=== PATIENT | female | born 1960 | race Caucasian/White ===

== ENCOUNTER → 2023-08-01 | Emergency (ER) | payer SELFPAY ==
[~2023-08-01] MED LIST: KETOROLAC 30 MG/ML INJ ONE; NA CHLORIDE 0.9% 1,000 ML ONE; ONDANSETRON 4 MG/2 ML VIAL ONE
[2023-08-01 12:55] LABS: Absolute Lymphocytes (CBC) 2.9 K/uL (0.7-4.9); Hematocrit 43.1 % (36.0-45.0); MCV 84.4 fL (80-100); MPV 6.9 fL (7.6-11.3); Platelets 346 thou/uL (152-406); RBC Red Blood Cell Count 5.11 M/uL (3.86-4.86)
[2023-08-01 13:35] LABS: Albumin 3.2 g/dL (3.4-5.0); Bilirubin Total 0.2 mg/dL (0.2-1.0); Protein, Total 7.1 g/dL (6.4-8.2)
[2023-08-01 13:36] LABS: Potassium 4.2 mEq/L (3.5-5.1)
--- NOTE | 2023-08-01 13:48 | RAD REPORT ---
EXAM DESCRIPTION: US - Abdomen Exam Limited - 08/01/2023 1:09 pm CLINICAL HISTORY: ABD PAIN COMPARISON: No comparisons FINDINGS: The gallbladder demonstrates shadowing gallstones. No pericholecystic fluid or gallbladder wall thickening. The common bile duct is normal measuring 4 mm. There are mobile stones in the regio n of the gallbladder neck and fundus. The liver demonstrates no findings of intrahepatic biliary dilatation. Hepatic steatosis . IMPRESSION: Cholelithiasis without sonographic evidence of acute cholecystitis. Hepatic steatosis. No biliary duct dilatation.
[2023-08-01 14:54] LABS: Specific Gravity 1.016 (1.005-1.030); Urine Bacteria <20 /HPF (<20); Urine Bilirubin NEGATIVE (Negative); Urine Blood Trace (Negative); Urine Clarity Extremely Turbid (Clear); Urine Color Light-Yellow (Yellow); Urine Glucose NEGATIVE (Negative); Urine Mucus Slight /HPF (None Seen); Urine Protein NEGATIVE (Negative); Urine RBC <5 /HPF (None Seen); Urine Urobilinogen Normal (Normal)
--- NOTE | 2023-08-01 14:57 | EDPHYS ---
Physician Documentation [facility] Name: Mohini Denton Age: 62 yrs Sex: Female : 1960 Arrival Date: 08/01/2023 Time: 12:16 Bed 17 Private MD: ED Physician Wilmer Goldsmith HPI: 08/01 14:11 This 62 yrs old Female presents to ER via Ambulatory with complaints of Back Pain, kb Abdominal Pain, Nausea, Flank Pain. 14:11 Patient is a 62-year-old female who presents for right mid back pain that radiates kb around to right abdomen started 6 days ago. Reports nausea, denies vomiting, diarrhea, urinary symptoms, fever.. Historical: - Allergies: 12:29 Keflex; rv 12:29 Macrobid; rv - PMHx: 12:29 Insomnia; rv - PSHx: 12:29 Lap band; section; section; section; rv - Immunization history:: Client reports having NOT received the Covid vaccine. - Social history:: Smoking status: Patient reports the use of cigarette tobacco products, smokes one pack cigarettes per day. ROS: 14:11 Constitutional: Negative for fever, chills, and weight loss, kb 14:11 Abdomen/GI: Positive for abdominal pain, nausea, of the right upper quadrant, Negative for vomiting, diarrhea, 14:11 Back: Positive for pain at rest, pain with movement, of the right mid back, 14:11 All other systems are negative, Exam: 14:11 Constitutional: This is a well developed, well nourished patient who is awake, alert, kb and in no acute distress. Head/Face: Normocephalic, atraumatic. ENT: Moist Mucous membranes Cardiovascular: Regular rate Respiratory: Respirations even and unlabored. No increased work of breathing. Talking in full sentences Abdomen/GI: Soft, non-tender. No distention Skin: Warm, dry with normal turgor. Normal color. MS/ Extremity: Pulses equal, no cyanosis. Neurovascular intact. Full, normal range of motion. Neuro: Awake and alert, GCS 15, oriented to person, place, time, and situation. Moves all extremities. Normal gait. 14:11 Back: pain, that is moderate, of the right mid back, ROM is painful, normal spinal alignment noted, Vital Signs: 12:25 BP 157 / 97; Pulse 78; Resp 17; Temp 98.6(O); Pulse Ox 99% ; Weight 88.9 kg; Height 5 rv ft. 4 in. ; Pain 8/10; 12:25 Body Mass Index 33.64 (88.90 kg, 162.56 cm) rv 12:25 Pain Scale: Adult rv MDM: 12:23 Patient medically screened. kb 14:12 Differential diagnosis: Cholelithiasis Ureterolithiasis uti, strain. Data reviewed: kb vital signs, nurses notes. 14:56 Counseling: I had a detailed discussion with the patient and/or guardian regarding the kb historical points, exam findings, and any diagnostic results supporting the discharge/admit diagnosis, lab results, radiology results, the need for outpatient follow up, a family practitioner, a general surgeon, a customer records division supervisor, to return to the emergency department if symptoms worsen or persist or if there are any questions or concerns that arise at home. Response to treatment: the patient's symptoms have markedly improved after treatment. 08/01 12:26 Order name: CBC with Diff; Complete Time: 12:59 kb 08/01 12:26 Order name: CMP; Complete Time: 13:37 kb 08/01 12:26 Order name: Lipase; Complete Time: 13:37 kb 08/01 12:26 Order name: Urinalysis w/ reflexes; Complete Time: 14:56 kb 08/01 14:58 Order name: Urine Culture EDMS 08/01 12:26 Order name: Abdomen Limited US; Complete Time: 13:58 kb 08/01 12:26 Order name: IV Saline Lock; Complete Time: 12:50 kb 08/01 12:26 Order name: Labs collected and sent; Complete Time: 12:50 kb Administered Medications: 13:20 Drug: NS 0.9% IV 1000 ml IV at 1 bolus Per protocol; 1000 mL bolus Route: IV; Rate: 1 bp bolus; Site: right antecubital; 15:04 Follow up: IV Status: Completed infusion; IV Intake: 1000ml bp 13:20 Drug: TORadol - Ketorolac IVP 15 mg IVP once Route: IVP; Site: right antecubital; bp 15:04 Follow up: Response: No adverse reaction bp 13:20 Drug: Ondansetron IVP 4 mg IVP once; over 2 minutes Route: IVP; Site: right antecubital;bp 15:04 Follow up: Response: No adverse reaction bp Disposition Summary: 08/01/23 14:57 Discharge Ordered Notes: Location: Home kb Condition: Stable kb Diagnosis - Other cholelithiasis without obstruction kb Followup: kb - With: Emergency Department - When: As needed - Reason: Worsening of condition Followup: kb - With: Private Physician - When: 2 - 3 days - Reason: Recheck today's complaints, Continuance of care, Re-evaluation by your physician Discharge Instructions: - Discharge Summary Sheet kb - Cholelithiasis, [id number] kb Forms: - Medication Reconciliation Form kb - Thank You Letter kb - Antibiotic Education kb - Prescription Opioid Use kb - Patient Portal Instructions kb - Leadership Thank You Letter kb Prescriptions: - Zofran 4 mg Oral tablet - take 1 tablet ORAL route every 6 hours As needed; 12 tablet; Refills: 0, kb Product Selection Permitted - dicyclomine 20 mg Oral tablet - take 1 tablet ORAL route 4 times per day As needed; 20 tablet; Refills: 0, kb Product Selection Permitted Signatures: Dispatcher [employer] EDLianet Acosta, TRACTOR MECHANIC APPRENTICE-C TRACTOR MECHANIC APPRENTICE-Hemal Carrillo, RN RN bp Harpal Sandoval, RN RN rv Corrections: (The following items were deleted from the chart) 14:12 14:11 Abdomen/GI: Positive for abdominal pain, of the right upper quadrant, kb kb
--- NOTE | 2023-08-01 14:57 | ER ---
Nurse's Notes [facility] Name: Mohini Denton Age: 62 yrs Sex: Female : 1960 Arrival Date: 08/01/2023 Time: 12:16 Bed 17 Private MD: Diagnosis: Other cholelithiasis without obstruction Presentation: 08/01 12:25 Chief complaint: Patient states: Back pain along with right upper abdominal pain for a rv week. Seen at urgent care. Not better. Nausea, denies vomiting/fever. Coronavirus screen: Vaccine status: Patient reports being unvaccinated. Ebola Screen: Patient denies travel to an Ebola-affected area in the 21 days before illness onset. Initial Sepsis Screen: Does the patient meet any 2 criteria? No. Patient's initial sepsis screen is negative. Does the patient have a suspected source of infection? No. Patient's initial sepsis screen is negative. Risk Assessment: Do you want to hurt yourself or someone else? Patient reports no desire to harm self or others. Onset of symptoms was July 27, 2023. 12:25 Method Of Arrival: Ambulatory rv 12:25 Acuity: SALEEM 3 rv Triage Assessment: 12:30 General: Appears in no apparent distress. uncomfortable, Behavior is calm, cooperative, bp appropriate for age. Pain: Complains of pain in right upper quadrant. Historical: - Allergies: 12:29 Keflex; rv 12:29 Macrobid; rv - PMHx: 12:29 Insomnia; rv - PSHx: 12:29 Lap band; section; section; section; rv - Immunization history:: Client reports having NOT received the Covid vaccine. - Social history:: Smoking status: Patient reports the use of cigarette tobacco products, smokes one pack cigarettes per day. Screenin:05 [facility] ED Fall Risk Assessment (Adult) History of falling in the last 3 months, bp including since admission No falls in past 3 months (0 pts). Abuse screen: Denies threats or abuse. Denies injuries from another. Nutritional screening: No deficits noted. Tuberculosis screening: No symptoms or risk factors identified. Assessment: 12:30 General: SEE TRIAGE NOTE. bp 15:05 Reassessment: DC HOME AMBULATORY. Neuro: Level of Consciousness is awake, alert, obeys bp commands, Oriented to Appropriate for age Gait is steady. Vital Signs: 12:25 BP 157 / 97; Pulse 78; Resp 17; Temp 98.6(O); Pulse Ox 99% ; Weight 88.9 kg; Height 5 rv ft. 4 in. ; Pain 8/10; 12:25 Body Mass Index 33.64 (88.90 kg, 162.56 cm) rv 12:25 Pain Scale: Adult rv ED Course: 12:21 Patient arrived in ED. im 12:23 Lianet Zamudio FNP-C [facility] kb 12:23 Wilmer Goldsmith MD is Attending Physician. kb 12:29 Triage completed. rv 12:30 Arm band placed on right wrist. rv 12:52 Inserted saline lock: 20 gauge in right antecubital area, using aseptic technique. [id number] Blood collected. 13:10 Abdomen Limited US In Process Unspecified. EDMS 13:10 Hemal Campbell, RN is Primary Nurse. bp 15:05 Patient has correct armband on for positive identification. bp 15:05 No provider procedures requiring assistance completed. IV discontinued, intact, bp bleeding controlled, No redness/swelling at site. Pressure dressing applied. Administered Medications: 13:20 Drug: NS 0.9% IV 1000 ml IV at 1 bolus Per protocol; 1000 mL bolus Route: IV; Rate: 1 bp bolus; Site: right antecubital; 15:04 Follow up: IV Status: Completed infusion; IV Intake: 1000ml bp 13:20 Drug: TORadol - Ketorolac IVP 15 mg IVP once Route: IVP; Site: right antecubital; bp 15:04 Follow up: Response: No adverse reaction bp 13:20 Drug: Ondansetron IVP 4 mg IVP once; over 2 minutes Route: IVP; Site: right antecubital;bp 15:04 Follow up: Response: No adverse reaction bp Medication: 15:05 VIS not applicable for this client. bp Intake: 15:04 IV: 1000ml; Total: 1000ml. bp Outcome: 14:57 Discharge ordered by . kb 15:05 Discharged to home ambulatory, bp 15:05 Condition: stable 15:05 Discharge instructions given to patient, Instructed on discharge instructions, follow up and referral plans. medication usage, Demonstrated understanding of instructions, follow-up care, medications, Prescriptions given X 2, 15:07 Patient left the ED. bp Signatures: Dispatcher [employer] EDNM Robb, Lianet, SERVER ENGINEER-C SERVER ENGINEER-CkHemal Larios, RN RN bp Harpal Sandoval RN RN Rufina Donohue [facility] [place]
[2023-08-01 15:18] VITALS: BP 157/97; TEMP 98.6; O2SAT 99
== END ==
LOC: ER 12:16
DX: K80.80 Other cholelithiasis without obstruction (principal)
CPT/HCPCS: 36415; 76705; 80053; 81001; 83690; 85025; 87086; 87088; 96361; 96374; 96375; 99284; J2405; J7030

== ENCOUNTER 2024-07-16 11:17 | Emergency (ER) | payer OTHER, SELFPAY ==
--- OUTSIDE RECORDS SUMMARY | 2024-07-16 11:22 | XMS REPORT | Continuity of Care Document ---
Author Name Unknown Address [address] [place] [address] [facility] thconnect Address [address] [place] [address] Care Team Providers Care Liquid Flavor Compounder Name Role Phone None, None Primary Care Physician [phone] Talia Theodore PA-C Attending Clinician [phone] TALIA THEODORE Attending Clinician Unavailable Unknown, Attending Attending Clinician Unavailab YOLANDA Christensen Attending Clinician Unavailable PIA TIMMONS Attending Clinician Unavailable EbPia Albert Attending Clinician Unknown, Attending Attending Clinician Unavailab le Unassigned, [place] Attending Clinician U gracielaable Talia Theodore PA-C Attending Clinician [phone] Lucie Loera Attending Clinician [phone] Attending Clinician Unavailable [address] Admitting Clinician Unavailable Payers Payer Name Policy Type Policy Number Effective Date Expirati on Date Source Problems Condition Name Condition Details Condition Category Status Onset Date Resolution Date Last Treatment Date Treating Clinician Comments Source No known active problems No known active problems Disease [facility] Allergies, Adverse Reactions, Alerts Allergy Name Allergy Type Status Severity Reaction(s) Onset Date Inactive Date Treating Clinician Comments Source HYDROCOD ONE-ACET AMINOPHE N DRUG Active N/V 07-14 00:00: 00 [facility] Hydrocod one-Acet aminophe n Drug Allergy Active Nausea and/or Vomiting 07-14 00:00: 00 [facility] CEPHALEX IN DRUG INGREDI Active Anaphylaxis 02-09 00:00: 00 [facility] NITROFUR ANTOIN MONOHYD/ M-CRYST DRUG Active Anaphylaxis 02-09 00:00: 00 [facility] Cephalex in Propensi ty to adverse reaction s Active Anaphylaxis 02-09 00:00: 00 [facility] Nitrofur antoin Monohyd/ M-Cryst Propensi ty to adverse reaction s Active Anaphylaxis 02-09 00:00: 00 [facility] Cephalex in Monohydr ate DA Active U 07-11 00:00: 00 [facility] cephalex in DA Active U 07-11 00:00: 00 [facility] nitrofur antoin DA Active U 07-11 00:00: 00 [facility] Cephalex in Allergy to substanc e Active Anaphylaxis 07-11 00:00: 00 [facility] ofloxaci n DA Active U 07-11 00:00: 00 [facility] Cephalex in Monohydr ate DA Active U 07-11 00:00: 00 [facility] ofloxaci n DA Active U 07-11 00:00: 00 [facility] Nitrofur antoin Allergy to substanc e Active Anaphylaxis 07-11 00:00: 00 [facility] Ofloxaci n Allergy to substanc e Active 07-11 00:00: 00 [facility] OFLOXACI N DRUG INGREDI Active Unknown-Cmnt 07-11 00:00: 00 [facility] Ofloxaci n Drug Allergy Active Unknown - See comments 07-11 00:00: 00 [facility] NO KNOWN ALLERGIE S Drug Class Active [facility] Social History Social Habit Start Date Stop Date Quantity Comments Source Sexual orientation [facility] History of Social function 2024-07-14 00:00:00 2024-07-14 00:00:00 [facility] Tobacco use and exposure 2023-07-30 00:00:00 2023-07-30 00:00:00 Smokeless tobacco non-user [facility] Exposure to SARS-CoV-2 (event) 2022-01-30 00:00:00 2022-02-09 17:09:00 Not sure [facility] Sex assigned at 1960 00:00:00 1960 00:00:00 [facility] Smoking Status Start Date Stop Date Source Tobacco smoking consumption unknown [facility] Never smoked tobacco [facility] Medications Ordered Medication Name Filled Medication Name Start Date Stop Date Current Medication? Ordering Clinician Indication Dosage Frequency Signature (SIG) Comments Components Source methylPREDN ISolone 4 mg tablets 07-14 00:00: 00 Yes [id number] Take by mouth SEE-INSTRU CTIONS. follow package directions [facility] bromphenira mine-pseudo ephedrine-D M (BROMFED DM) 2-30-10 mg/5 mL syrup 07-14 00:00: 00 Yes [id number] 5mL Take 5 mL by mouth 3 (three) times daily as needed for Cold symptoms or Cough. [facility] azithromyci n 250 mg tablet 07-14 00:00: 00 07-20 05:59 :00 Yes [id number] Take 2 tablets by mouth daily for 1 day, THEN 1 tablet daily for 4 days. [facility] dexamethaso ne (DECADRON) injection 10 mg -15 17:00: 00 07-30 15:58 :00 No [id number] 10mg [facility] ketorolac (TORADOL) injection 30 mg 2-15 16:45: 00 07-30 15:59 :00 No [id number] 30mg [facility] ondansetron (ZOFRAN-ODT ) disintegrat ing tablet 4 mg 07-30 16:45: 00 07-30 15:57 :00 No [id number] 4mg [facility] methocarbam oL (ROBAXIN-75 0) 750 mg tablet 07-30 00:00: 00 08-10 05:59 :00 No [id number] 750mg Take 1 tablet by mouth 4 (four) times daily for 10 days. [facility] ondansetron 4 mg disintegrat ing tablet 07-30 00:00: 00 08-05 05:59 :00 No [id number] 4mg Take 1 tablet by mouth every 8 (eight) hours as needed for Nausea and Vomiting (N/V) for up to 5 days. [facility] temazepam (Restoril) 30 MG capsule 06-23 00:00: 00 Yes TAKE 1 CAPSULE BY MOUTH EVERYDAY AT BEDTIME FOR 30 DAYS [facility] albuterol 90 mcg/actuati on inhaler 02-09 00:00: 00 Yes [id number] 2{puff} Inhale 2 Puffs every 6 (six) hours as needed for Wheezing or Shortness of Breath. [facility] polymyxin B sulf-trimet hoprim 10,000 unit- 1 mg/mL ophthalmic drops 02-09 00:00: 00 Yes [id number] 1[drp] Place 1 Drop in both eyes every 4 (four) hours. [facility] methylPREDN ISolone 4 mg tablets 02-09 00:00: 00 07-14 00:00 :00 No [id number] Take by mouth SEE-INSTRU CTIONS. follow package directions [facility] azithromyci n 250 mg tablet 02-09 00:00: 00 07-30 00:00 :00 No [id number] 250mg Take 1 tablet by mouth in the morning. [facility] Vital Signs Vital Name Observation Time Observation Value Comments S johny Systolic blood pressure 2024-07-14 23:40:00 136 mm[Hg] [facility] Diastolic blood pressure 2024-07-14 23:40:00 85 mm[Hg] [facility] Heart rate 2024-07-14 23:40:00 81 /min [facility] Body temperature 2024-07-14 23:40:00 36.89 Shannan [facility] Respiratory rate 2024-07-14 23:40:00 15 /min [facility] Body height 2024-07-14 23:40:00 162.6 cm [facility] Body weight 2024-07-14 23:40:00 95.89 kg Univ [facility] BMI 2024-07-14 23:40:00 36.29 kg/m2 [facility] Oxygen saturation in Arterial blood by Pulse oximetry 2024-07-14 23:40:00 97 /min [facility] Systolic blood pressure 2023-08-14 18:02:00 130 mm[Hg] [facility] [place] [facility] Diastolic blood pressure 2023-08-14 18:02:00 91 mm[Hg] [facility] [place] [facility] Heart rate 2023-08-14 18:02:00 90 /min [facility] Body height 2023-08-14 18:02:00 [facility]6 [facility] 2023-08-14 18:02:00 89.404 [facility] BMI 2023-08-14 18:02:00 33.83 [facility] saturation in Arterial blood by Pulse oximetry 2023-08-14 18:02:00 97 /min [facility] [place] [facility] Systolic blood pressure 2023-07-30 15:39:00 132 mm[Hg] [facility] Diastolic blood pressure 2023-07-30 15:39:00 74 mm[Hg] [facility] Heart rate 2023-07-30 15:39:00 91 /min Unive [facility] Body temperature 2023-07-30 15:39:00 37.11 Shannan [facility] Respiratory rate 2023-07-30 15:39:00 17 /min [facility] Body weight 2023-07-30 15:39:00 88.905 kg [facility] BMI 2023-07-30 15:39:00 33.64 kg/m2 [facility] Oxygen saturation in Arterial blood by Pulse oximetry 2023-07-30 15:39:00 99 /min [facility] Systolic blood pressure 2022-02-09 22:08:00 133 mm[Hg] [facility] Diastolic blood pressure 2022-02-09 22:08:00 85 mm[Hg] [facility] Heart rate 2022-02-09 22:08:00 86 /min [facility] Body temperature 2022-02-09 22:08:00 37 Shannan [facility] Respiratory rate 2022-02-09 22:08:00 17 /min [facility] Body height 2022-02-09 22:08:00 162.6 cm [facility] Body weight 2022-02-09 22:08:00 87.408 kg [facility] BMI 2022-02-09 22:08:00 33.08 kg/m2 [facility] Oxygen saturation in Arterial blood by Pulse oximetry 2022-02-09 22:08:00 96 /min [facility] Procedures Procedure Date / Time Performed Performing Clinicia n Source XR CHEST 2 VW 2024-07-14 23:53:33 Talia Theodore [facility] PATIENT FINANCIAL POLICY 2023-07-30 15:35:52 Doctor Unassigned, [place] [facility] CONSENT/REFUSAL FOR DIAGNOSIS AND TREATMENT 2022-02-09 21:59:05 Doctor Unassigned, [place] [facility] Encounters Start Date/Time End Date/Time Encounter Type Admission Type Attending Clinicians Care Facility Care Department Encounter ID Source 2024-07-14 17:47:35 2024-07-14 23:59:00 Hospital Encounter Talia Theodore [facility] [id number] [id number] [id number] [id number] [facility] 2024-07-14 17:47:35 2024-07-14 23:59:00 Outpatient R TALIA THEODORE [facility] [id number] [facility] 2024-07-14 17:20:00 2024-07-14 17:57:12 Urgent Care Talia Theodore Unknown, Attending [facility] 1.114 350.1.13.10 4.2.7.2.686 [id number] [facility] 2023-08-24 13:00:00 2023-08-24 13:00:00 Outpatient YOLANDA ACOSTA [facility] [id number] [facility] 2023-08-14 12:45:00 2023-08-14 12:45:00 Office Visit Yolanda Acosta [facility] AND WOM[facility] 1..114 350.1.13.58 [id number] [id number] [facility] [place] [facility] 2023-07-30 09:40:00 2023-07-30 09:58:17 Outpatient R PIA TIMMONS [facility] [id number] [facility] 2023-07-30 09:40:00 2023-07-30 09:58:17 Urgent Care Pia Timmons, Attending [facility] 1.114 350.1.13.10 4.2.7.2.686 [id number] [facility] 2023-07-30 00:00:00 2023-07-30 00:00:00 Orders Only Doctor Unassigned, [place] [facility] 1.114 350.1.13.10 4.2.7.2.686 [id number] [facility] 2022-02-09 17:00:00 2022-02-09 17:20:00 Urgent Care Talia Theodore, [facility] 1.114 350.1.13.10 4.2.7.2.686 [id number] [facility] 2022-02-09 17:00:00 2022-02-09 17:00:00 Outpatient TALIA STEVENSON [facility] [id number] [facility] 2022-02-09 00:00:00 2022-02-09 00:00:00 Orders Only Doctor Unassigned, [place] [facility] [id number] 350.1.13.10 4.2.7.2.686 [id number] [facility] 2021-02-01 10:56:00 2021-02-01 10:56:[address] Jose Angel [facility] [id number] [facility] Results Test Description Test Time Test Comments Results Resul t Comments Source XR Chest 2 vw 2024-06-17 1 00:29:39 XR CHEST 2 VW COMPARISON: No comparison available Ordering provider: TALIA THEODORE CLINICAL INDICATIONS: cough x 3 wks TECHNIQUE: Appropriate radiographic technique and conforming to ALARA FINDINGS: ? The lungs are clear without infiltrate or abnormal opacity. The pleuralspace is unremarkable. The heart and mediastinum are within normal limits.Generalized minimal to moderate degenerative spondylosis in the thoracicspine. [facility] - XR CHEST 2 V 2021-01-14 0 11:28:00 [facility]Name: JOSE MCLAUGHLIN : 1960 Sex: F [place]: [place] St: REG Name: JOSE MCLAUGHLIN LONNY [facility] FSED : 1960 Age/S: 60/F [address] Unit #: [id number] Loc: [facility] [address] Phys: Jose Angel Way MD [place], [place] [address] Acct: [id number] Dis Date: Status: REG CLI PHONE #: Exam Date: 02/01/2021 1103 FAX #: Reason: PNEUMONIA EXAMS: CPT CODE: [id number] XR CHEST 2 V 44944 REASON FOR EXAM: PNEUMONIA Exam Order Date: 02/01/2021 10:59 AM Ordering M.D.: Jose Angel Way MD PROCEDURE: - XR CHEST 2 V COMPARISON: None FINDINGS: The lungs are clear. There is no pleural effusion or pneumothorax. Pulmonary vascularity is within normal limits. Cardiomediastinal silhouette is normal in size for technique. The mediastinal contours are within normal limits. Musculoskeletal structures are within normal limits. Gastric band is present. IMPRESSION: No acute cardiopulmonary process. Location: [facility] at 1128 Reported and signed by: Bud Luevano MD CC: Technologist: Edson Walker Trnscrd Date/Time/By: 02/01/2021 (1128) : By: [email or web address] Orig Print D/T: S: 02/01/2021 (1139) PAGE 1 Signed Report - XR KNEE 3 V RT 2018-09-0 9 14:11:00 FAX: Familia Boston MD [phone] [place]: O St: REG Name: JOSE MCLAUGHLIN [facility] : 1960 Age/S: 58/F [address] Unit #: [id number] [facility] [place] [address] Phys: Familia Ceballos MD Acct: [id number] Dis Date: Status: REG RCR PHONE #: [phone] Exam Date: 09/21/2018 1356 FAX #: [phone] Reason: FX EXAMS: CPT CODE: [id number] XR KNEE 3 [place] RT [address] HISTORY: Fracture follow-up. COMPARISON: None available. 3 views of the right knee: No acute fracture or dislocation. Knee joint is mildly narrowed in all 3 compartments. No osteochondral lesion. Articular surfaces are well marginated. No joint fluid. Bone mineralization and soft tissues are normal. IMPRESSION: No acute fracture or dislocation. Mild tricompartment joint space narrowing. at 1411 Reported and signed by: Heath Rudolph M.D. CC: Familia Ceballos MD Technologist: RT Perla(R) Trnscrd Date/Time/By: 09/21/2018 (1411) : By: [email or web address] Orig Print D/T: S: 09/21/2018 (5124) PAGE 1 Signed Report
[2024-07-16 12:15] LABS: Absolute Basophils 0.1 K/uL (0-0.5); Absolute Lymphocytes (CBC) 1.3 K/uL (0.7-4.9); Absolute Monocytes 0.3 K/uL (0.1-1.3); Basophils % 0.8 % (0-1.3); Hemoglobin 13.4 g/dL (12.0-15.0); MCH 27.4 pg (27.0-35.0); MCHC 34.2 g/dL (32.0-36.0); MPV 6.7 fL (7.6-11.3); Monocytes % 2.6 % (3.3-12.3); Neutrophils % 84.6 % (41.7-73.7); Platelets 441 thou/uL (152-406); RBC Red Blood Cell Count 4.88 M/uL (3.86-4.86); Red Cell Distribution Width 15.2 % (12.1-15.2)
[2024-07-16 12:41] LABS: Anion Gap 8.9 mEq/L (5.0-15.0); Potassium 3.9 mEq/L (3.5-5.1); Thyroid Stimulating Hormone 0.705 uIU/mL (0.358-3.740); Troponin High Sensitivity 3.8 pg/mL (<58.9)
--- NOTE | 2024-07-16 13:16 | ER ---
Nurse's Notes [facility] Name: Mohini Denton Age: 63 yrs Sex: Female : 1960 Arrival Date: 07/16/2024 Time: 11:17 Bed 18 Private MD: Diagnosis: Cough;Other malaise and fatigue Presentation: 07/16 11:36 Chief complaint: Patient states: Has been ill for the last 4 weeks. pt went to urgent cm10 care on and started on Z-Pack and steroids. Pt states that yesterday she felt her heart racing and redness to her face. Pt woke up this morning and had swelling to her eyes. respirations even and unlabored during triage. Coronavirus screen: Client denies travel out of the [place] in the last 14 days. Ebola Screen: Patient denies travel to an Ebola-affected area in the 21 days before illness onset. Onset: The symptoms/episode began/occurred yesterday. Anaphylaxis evaluation, no signs or symptoms of anaphylaxis were noted. Initial Sepsis Screen: Does the patient meet any 2 criteria? No. Patient's initial sepsis screen is negative. Does the patient have a suspected source of infection? No. Patient's initial sepsis screen is negative. Risk Assessment: Do you want to hurt yourself or someone else? Patient reports no desire to harm self or others. Onset of symptoms was July 15, 2024. 11:36 Method Of Arrival: Ambulatory cm10 11:36 Acuity: SALEEM 3 cm10 Triage Assessment: 11:38 General: Appears uncomfortable, Behavior is calm, cooperative. Pain: Complains of pain cm10 in Generalized body aches. Neuro: No deficits noted. Level of Consciousness is awake, alert, obeys commands, Oriented to person, place, time, situation, Appropriate for age. Respiratory: No deficits noted. Airway is patent Respiratory effort is even, unlabored, Respiratory pattern is regular, symmetrical. Historical: - Allergies: 11:36 Keflex; cm10 11:36 Macrobid; cm10 - PMHx: 11:36 insomnia; cm10 - PSHx: 11:36 section; lap band; section; section; cm10 - Immunization history:: Adult Immunizations up to date. - Infectious Disease History:: Denies. - Social history:: Smoking status: Patient reports the use of cigarette tobacco products, smokes one pack cigarettes per day. - Family history:: not pertinent. - Hospitalizations: : No recent hospitalization is reported. Screenin:45 [facility] ED Fall Risk Assessment (Adult) History of falling in the last 3 months, kj2 including since admission No falls in past 3 months (0 pts) Confusion or Disorientation No (0 pts) Intoxicated or Sedated No (0 pts) Impaired Gait No (0 pts) Mobility Assist Device Used No (0 pt) Altered Elimination No (0 pt) Score/Fall Risk Level 0 - 2 = Low Risk Maintained a safe environment, Hourly rounding (assess needs \T\ fall precautionary measures) done. Abuse screen: Denies threats or abuse. Denies injuries from another. Nutritional screening: No deficits noted. Tuberculosis screening: No symptoms or risk factors identified. Assessment: 12:07 General: Appears in no apparent distress. Behavior is calm, cooperative, appropriate ap3 for age. Neuro: Level of Consciousness is awake, alert, obeys commands, Oriented to person, place, time, situation. Cardiovascular: Patient's skin is warm and dry. Respiratory: Airway is patent Respiratory effort is even, unlabored, Respiratory pattern is regular, symmetrical. 13:08 Reassessment: Patient appears in no apparent distress at this time. Patient and/or kj2 family updated on plan of care and expected duration. Pain level reassessed. Patient is alert, oriented x 3, equal unlabored respirations, skin warm/dry/pink. 13:28 Respiratory: Breath sounds are clear. kj2 Vital Signs: 11:36 BP 178 / 90; Pulse 77; Resp 14; Temp 98.5; Pulse Ox 100% ; Weight 92.99 kg; Height 5 cm10 ft. 4 in. ; Pain 6/10; 13:25 BP 154 / 85; Pulse 90; Resp 20; Temp 98; Pulse Ox 100% on R/A; kj2 11:36 Body Mass Index 35.19 (92.99 kg, 162.56 cm) cm10 11:36 Pain Scale: Adult cm10 ED Course: 11:21 Patient arrived in ED. al6 11:29 Syed Manrique MD is Attending Physician. rn 11:36 Arm band placed on right wrist. Patient placed in an exam room, on a stretcher. cm10 11:38 Triage completed. cm10 11:58 Client placed on continuous cardiac and pulse oximetry monitoring. NIBP monitoring ap3 applied. ekg monitor tech on. Pulse ox on. NIBP on. 11:58 EKG done, by ED staff, reviewed by Syed Manrique MD. ap3 12:06 Initial lab(s) drawn, by in, sent to lab. Inserted saline lock: 20 gauge in right ap3 antecubital area, using aseptic technique. Blood collected. Flushed with 10 mL NS. 12:07 CBC with Diff Sent. ap3 12:07 Basic Metabolic Panel Sent. ap3 12:07 TSH Sent. ap3 12:07 T4 Free Sent. ap3 12:07 Troponin High Sensitivity Sent. ap3 12:45 Patient has correct armband on for positive identification. Bed in low position. Call kj2 light in reach. Side rails up X 1. Provided Education on: call light. 13:22 Leidy Phipps, RN is Primary Nurse. kj2 13:28 No provider procedures requiring assistance completed. IV discontinued, intact, kj2 bleeding controlled, No redness/swelling at site. Pressure dressing applied. Administered Medications: No medications were administered Medication: 13:28 VIS not applicable for this client. kj2 Outcome: 13:16 Discharge ordered by . rn 13:28 Discharged to home ambulatory, kj2 13:28 Condition: stable 13:28 Discharge instructions given to patient, Instructed on discharge instructions, follow up and referral plans. Demonstrated understanding of instructions, follow-up care, medications, 13:45 Patient left the ED. kj2 Signatures: Syed Manrique MD MD rn Prokisch, Amanda RN RN ap3 Adelaide Chi RN RN 10 Leidy Phipps RN RN kj2 Jojo Sanders al6
--- NOTE | 2024-07-16 13:16 | EDPHYS ---
Physician Documentation [facility] Name: Mohini Denton Age: 63 yrs Sex: Female : 1960 Arrival Date: 07/16/2024 Time: 11:17 Bed 18 Private MD: ED Physician Syed Manrique HPI: 07/16 13:12 This 63 yrs old Female presents to ER via Ambulatory with complaints of Allergic rn Reaction, maybe from medication. 13:12 Onset: The symptoms/episode began/occurred at an unknown time. Severity of symptoms: At rn their worst the symptoms were mild in the emergency department the symptoms are unchanged. The patient has not experienced similar symptoms in the past. 13:12 Patient reports approximately 1 month of symptoms including cough, malaise, headache rn and fatigue. Patient reports this is currently her second round of antibiotics and taking steroids as well. Yesterday started with periorbital swelling and thought may be allergic reaction so came in for evaluation. Has not had allergic reaction before and has had Zithromax in the past. Has had steroids in the past as well. No new etiology found in discussion with patient. No fever or chills.. Historical: - Allergies: 11:36 Keflex; cm10 11:36 Macrobid; cm10 - PMHx: 11:36 insomnia; cm10 - PSHx: 11:36 section; lap band; section; section; cm10 - Immunization history:: Adult Immunizations up to date. - Infectious Disease History:: Denies. - Social history:: Smoking status: Patient reports the use of cigarette tobacco products, smokes one pack cigarettes per day. - Family history:: not pertinent. - Hospitalizations: : No recent hospitalization is reported. ROS: 13:12 Constitutional: Negative for fever, chills, and weight loss, Neck: Negative for injury, rn pain, and swelling, Cardiovascular: Negative for chest pain, palpitations, and edema, Respiratory: Positive for cough Abdomen/GI: Negative for abdominal pain, nausea, vomiting, diarrhea, and constipation, MS/Extremity: Negative for injury and deformity, Skin: Negative for injury, rash, and discoloration, Neuro: Positive for headache and generalized malaise Exam: 13:12 Constitutional: This is a well developed, well nourished patient who is awake, alert, rn and in no acute distress. Head/Face: Normocephalic, atraumatic. Eyes: Mild periorbital erythema with slight swelling. No signs of cellulitis Cardiovascular: Regular rate and rhythm. No pulse deficits. Respiratory: No increased work of breathing, no retractions or nasal flaring. Skin: Warm, dry, no cellulitis Neuro: Awake and alert, GCS 15 Vital Signs: 11:36 BP 178 / 90; Pulse 77; Resp 14; Temp 98.5; Pulse Ox 100% ; Weight 92.99 kg; Height 5 cm10 ft. 4 in. ; Pain 6/10; 13:25 BP 154 / 85; Pulse 90; Resp 20; Temp 98; Pulse Ox 100% on R/A; kj2 11:36 Body Mass Index 35.19 (92.99 kg, 162.56 cm) cm10 11:36 Pain Scale: Adult cm10 MDM: 11:29 Medical Screening Exam initiated rn 13:12 Differential diagnosis: angioedema, Mastocystosis non IgE mediated drug reaction rn urticaria, Rheumatologic problem. Data reviewed: vital signs, nurses notes, lab test result(s), and as a result, I will discharge patient. Counseling: I had a detailed discussion with the patient and/or guardian regarding the historical points, exam findings, and any diagnostic results supporting the discharge/admit diagnosis, lab results, the need for outpatient follow up, to return to the emergency department if symptoms worsen or persist or if there are any questions or concerns that arise at home. Special discussion: I discussed with the patient/guardian in detail that at this point there is no indication for admission to the hospital. It is understood, however, that if the symptoms persist or worsen the patient needs to return immediately for re-evaluation. 13:16 ED course: Patient already on antibiotics and steroids, will discharge home with rn instructions to follow-up with PCP and possible rheumatologic workup given periorbital/malar rash.. 07/16 11:44 Order name: CBC with Diff; Complete Time: 12:47 rn 07/16 11:44 Order name: Basic Metabolic Panel; Complete Time: 12:47 rn 07/16 11:44 Order name: TSH; Complete Time: 12:47 rn 07/16 11:44 Order name: T4 Free; Complete Time: 12:47 rn 07/16 11:44 Order name: Troponin High Sensitivity; Complete Time: 12:47 rn 07/16 11:44 Order name: EKG; Complete Time: 11:44 rn 07/16 11:44 Order name: IV Start; Complete Time: 12:07 rn 07/16 11:44 Order name: EKG - Nurse/Tech; Complete Time: 11:58 rn Administered Medications: No medications were administered Disposition Summary: 07/16/24 13:16 Discharge Ordered Notes: Location: Home rn Problem: new rn Symptoms: have improved rn Condition: Stable rn Diagnosis - Cough rn - Other malaise and fatigue rn Followup: rn - With: Private Physician - When: As needed - Reason: Recheck today's complaints, Re-evaluation by your physician Discharge Instructions: - Discharge Summary Sheet rn - Fatigue rn - Cough, Adult rn Forms: - Medication Reconciliation Form rn - Antibiotic internal affairs investigator - Prescription Opioid Use rn - Patient Portal Instructions rn - Leadership Thank You Letter rn Signatures: Dispatcher [employer] Syed Grande MD MD rn Martinez, Clarissa, RN RN cm10
[2024-07-16 13:59] VITALS: O2SAT 100
[2024-07-16 14:05] VITALS: BP 154/85; TEMP 98
== END 2024-07-16 13:45 | disposition home or self-care (01) ==
LOC: ER 11:17
DX: R05.9 Cough, unspecified (principal); R53.81 Other malaise; R53.83 Other fatigue
CPT/HCPCS: 36415; 80048; 84439; 84443; 84484; 85025; 93005; 99284